=== PATIENT | female | born 1980 | race Caucasian/White ===

== ENCOUNTER 2023-06-17 11:20 | Outpatient (CLI) | payer OTHER, SELFPAY ==
[2023-06-17 11:57] LABS: Alanine Aminotransferase 17 U/L (6-35); Albumin Level 4.1 g/dL (3.5-5.1); Alkaline Phosphatase 53 U/L (38-126); Amylase 73 U/L (30-110); Aspartate Amino Transferase 26 U/L (14-36); Bilirubin,Total 0.8 mg/dL (0.2-1.3); Lipase 110 U/L (23-300)
== END 2023-06-17 11:21 | disposition home or self-care (01) ==
LOC: ANHSURGERY 11:26
PROVIDERS: Visit Provider Surgery
DX: K80.10 Calculus of gallbladder with chronic cholecystitis without obstruction (principal); Z01.818 Encounter for other preprocedural examination
CPT/HCPCS: 36415; 80076; 82150; 83690; 86850; 86900; 86901

== ENCOUNTER 2023-06-25 01:06 | Day surgery (SDC) | payer OTHER, SELFPAY ==
[2023-06-11 14:09] VITALS: BMI 30.2
--- NOTE | 2023-06-11 14:21 | PC.NURSE ---
Report to the Outpatient Waiting Room, entrance under the green pavilion located off [facility], at time 6:00 on date 06/25/23. Planned Procedure Time: 7:30. Time changes happen often and if your time is changed the preop area will call you the afternoon before. - You and your visitor will be asked to self-screen and do not enter if you have any COVID symptoms. - A mask is optional within the hospital at this time. Patients may have clear liquids (water, carbonated beverages, clear teas, apple juice) until 3 hours prior to surgery (4:30) with a maximum of 20 ounces. - No food from midnight until time of surgery Take the following medications with a SIP of water the morning of surgery: BUPROPION, THYROID DO NOT STOP ANY OF YOUR OTHER PRESCRIPTION MEDICATIONS PRIOR TO SURGERY ?EXCEPT THE FOLLOWING Medications to discontinue per physician: VITAMINS/SUPPLEMENTS Date to take last dose: 06/21/23 STOP WEGOVY 10 DAYS PRIOR TO SURGERY Please no make-up, nail kinyarwanda, hairspray, perfume, deodorant, or body powder the day of surgery. No jewelry (including any body piercings) or valuables the day of surgery, leave them at home. Please take a shower or bath the night before, or the morning of, surgery with an antibacterial soap. Wear comfortable, loose fitting clothing. - Jewelry must be removed prior to entering the operating room. Rings and piercings that are not removed may be cut off. - The hospital will not accept responsibility for valuables. - Please leave all valuables, including medications, at home the day of surgery. If you are going home after surgery, a licensed escort car driver must drive you home. - NO public transportation without another adult if you receive anesthesia. - We recommend that an adult stay with you for 24 hours following discharge. - We also recommend that you do not drive, make important decision, drink alcoholic beverages, or take any drugs that were not prescribed by your health care provider for at least 24 hours after your discharge time. Follow any additional instructions given to you from your surgeon. If you or anyone in your household have experienced Covid symptoms in the past week, please notify your surgeon or the nurse liaison at the phone number below for possible testing. Telephone instructions given to PT - NACHO IVERSON and asked if any additional questions and then verbalized understanding. Patient advised to call surgeon office or pre surgery nurse liaison [phone] if any additional questions.
[2023-06-25] VITALS (9 sets, daily range): BP systolic 114–144; BP diastolic 70–96; PULSE 89–110; RESP 14–18; TEMP 36.4–36.8; O2SAT 98–100
--- NOTE | 2023-06-25 06:34 | WPDANESEPPF ---
Anes - Initial Pre Proc Eval Procedure: Operation Date: 06/25/23 07:30 Proposed Procedures p Laparoscopic Cholecystectomy - Catina Turner MD Date/Time: 06/25/23 06:34 Surgeon: Catina Turner MD Pre Op Diagnosis: chronic calculous cholecystitis Patient Data Age: 43 Gender: F Height: 1.55 m Weight: 72.6 kg Allergies Allergy/AdvReac Type Severity Reaction Status Date / Time No Known Allergies Allergy Verified 06/11/23 14:05 Home Medications Medication Instructions Recorded Confirmed Type bupropion HCl 150 mg 24 hr tablet, 150 mg PO QAM 04/10/20 06/11/23 History extended release thyroid (pork) 60 mg tablet (PRESS SETTER 60 mg PO DAILY 04/10/20 06/11/23 History Thyroid) spironolactone 100 mg tablet 150 mg PO DAILY 05/09/21 06/11/23 History Saccharomyces boulardii 250 mg 250 mg PO DAILY 06/11/23 06/11/23 History capsule (Daily Probiotic (S. boulardii)) cholecalciferol (vitamin D3) 125 125 mcg PO DAILY 06/11/23 06/11/23 History mcg (5,000 unit) tablet (Vitamin D3) multivitamin 1 tablet PO DAILY 06/11/23 06/11/23 History semaglutide (weight loss) 2.4 2.4 mg subcut WEEKLY 06/11/23 06/11/23 History mg/0.75 mL subcutaneous pen injector (Wegovy) vitamin B complex 1 tablet PO DAILY 06/11/23 06/11/23 History Patient hx anesthesia problems: none Family hx anesthesia problems: none Results Review: All pre-operative results and documents have been reviewed as part of the pre-operative evaluation. [facility] Past Medical History Medical History Depression Hyperthyroidism LGSIL on Pap smear of cervix Surgical History Surgical History History of bunionectomy of both great toes History of colposcopy with cervical biopsy History of placement of ear tubes Family History Family History Other Diabetes mellitus Heart disease Hypertension Social History Social History Smoking status: Former smoker Tobacco type: cigarettes Second hand tobacco smoke exposure: No Smoking end date: 06/22/11 Additional smoking assessment comments: FORMER [employer] Alcohol intake: current Alcohol use details: 2/MONTH Substance use: never Substance use type: does not use Living arrangements: with family Occupation/Education: occupation Additional occupation/education comments: [employer] Spiritual care concerns: No Anes - Eval Final PreProcedure Day of Procedure 06/25/23 06:34 Patient weight: obese Heart: regular rate and rhythm Lungs: clear to auscultation Airway: Mallampati scale class II Neurological: alert and oriented Last oral intake: >/= 8 hours ASA classification: II Emergent: no Anesthetic plan: proceed Anesthesia type and monitoring: general ETT and standard monitoring Results Review: All pre-operative results and documents have been reviewed as part of the pre-operative evaluation. Informed Consent: The patient's anesthetic plan and its attendant risks and benefits were discussed with the patient/family/POA. Questions were solicited and answers provided to the satisfaction of the patient/family/POA.
[2023-06-25] MEDS: KETOROLAC 15 MG/ML VIAL (*BKC) IV PUSH (07:10)
[2023-06-25] MEDS: ACETAMINOPHEN 500 MG TABLET 1000 MG PO (07:10)
[2023-06-25] MEDS: LACTATED RINGERS 1,000 ML 30 ML IV CONT ×2 (07:10→08:33)
--- NOTE | 2023-06-25 07:24 | WPDHPUPDATE1 ---
History and Physical Update Update Date/Time: 06/25/23 07:24 History and Physical has been reviewed, including an updated exam of the patient. There are NO changes in the patient's condition. Risks, benefits, and alternatives have been discussed and questions answered. Patient agrees to proceed with procedure.
[2023-06-25] MEDS: ceFAZolin 2 GM/D5W 50 ML 2 GM/50 ML BAG IVPB (07:30)
[2023-06-25] MEDS: SCOPOLAMINE 1 MG PATCH 1 PATCH TRANSDERM (08:10)
--- NOTE | 2023-06-25 08:23 | W.PM.PROC2 ---
Procedure Note - Detailed Date of Procedure 06/25/23 Pre-op Diagnosis chronic calculous cholecystitis Post-op Diagnosis Same Procedure Performed Laparoscopic cholecystectomy Surgeon Catina Turner MD Anesthesia General Indications 43-year-old female presented to the office complaining of postprandial right upper quadrant abdominal pain associated with nausea and vomiting. Workup including imaging significant for cholecystitis, cholelithiasis. Findings Cholecystitis with cholelithiasis Description of Procedure The patient was taken to the operating room placed in the supine position. After adequate induction of general anesthesia, the patient was prepped and draped in normal sterile fashion. A time-out was then performed to verify the patient's identity as well as the procedure being performed. I then made a 5 mm incision in the infraumbilical region. Through this, a Veress needle was placed into the peritoneal cavity and CO2 gas was then insufflated. After adequate pneumoperitoneum was achieved, the Veress needle was removed and a 5 mm optiview trocar was placed through this incision under direct visualization. I then placed the laparoscope through this trocar site and under direct visualization placed a further 12 mm subxiphoid port as well as 2 additional 5 mm ports in the right upper abdomen. The gallbladder was then identified and was noted to be moderately inflamed, distended, and full of gallstones. I was able to place a grasper at the dome of the gallbladder and this was retracted anterior and cephalad up over the liver. A 2nd retractor was then placed at the infundibulum and retracted laterally, this allowed visualization of the triangle of Calot. I then was able to visualize the cystic duct in its entirety from its proximal insertion into the gallbladder, to its distal junction with the common hepatic/common bile duct junction. At this point, I carefully skeletonized the proximal cystic duct with the [place] dissector. I then clipped and transected the proximal cystic duct. Next I visualized the cystic artery. Again the artery was skeletonized, clipped, and transected. I then used the Bovie cautery to take down the peritoneal attachments of the gallbladder off the liver bed. This was somewhat difficult given the amount of inflammation in the posterior space. Once the gallbladder specimen was completely detached, an endo-pouch was placed through the 12 mm port site. I then placed the gallbladder specimen into the Endo pouch and removed the endo-pouch from the 12 mm port site. The specimen will now be sent to pathology for further review. I then copiously irrigated the right upper quadrant. Hemostasis was noted in the liver bed, the clips were noted to be in good position on both the cystic duct stump and the cystic artery stump. No other pathology was noted in the right upper quadrant. I then moved the laparoscope to the subxiphoid port. No iatrogenic injury or other pathology was noted in the lower abdomen. I then closed the 12 mm trocar site under direct visualization using the Joseph cone and 0 Vicryl suture. At this point, the abdomen was desufflated and all ports removed. All port sites were then closed with 4.O Monocryl subcuticular sutures. Dermabond was placed on each incision. The patient tolerated the procedure well, was extubated in the operating room postoperative and will be transferred to the recovery room in stable condition Estimated Blood Loss 5 Drains No Packing No Pathology Yes Complications No immediate complications Condition Stable Disposition PACU [facility] Billing Surgery - Charge Forward: Surgery Billing
[2023-06-25] MEDS: fentaNYL CITRATE INJ (*CRX) 100 MCG/2 ML VIAL 25 MCG IV PUSH ×7 (08:50→09:28)
[2023-06-25] MEDS: ONDANSETRON INJ 4 MG/2 ML VIAL IV PUSH (09:42)
== END 2023-06-25 11:13 | disposition home or self-care (01) ==
PROVIDERS: Visit Provider Surgery
PROC: 0FT44ZZ Resection of Gallbladder, Percutaneous Endoscopic Approach (ICD-10-PCS; CPT 47562; principal; 2023-06-25 07:30)
DX: K80.10 Calculus of gallbladder with chronic cholecystitis without obstruction (principal); F32.A Depression, unspecified; E66.9 Obesity, unspecified; Z68.30 Body mass index [BMI] 30.0-30.9, adult; E05.90 Thyrotoxicosis, unspecified without thyrotoxic crisis or storm; Z79.85 Long-term (current) use of injectable non-insulin antidiabetic drugs; Z87.891 Personal history of nicotine dependence; Z82.49 Family history of ischemic heart disease and other diseases of the circulatory system
CPT/HCPCS: 47562; 36415; 80076; 82150; 83690; 86850; 86900; 86901; 88304; A9270; J0690; J1100; J1170; J1885; J2250; J2371; J2405; J2704; J3010; J7030; J7120